=== PATIENT | female | born 1985 | race Caucasian/White ===

== ENCOUNTER 2016-11-04 23:42 | Emergency (ER) | payer MEDICAID ==
[~2016-11-04] VITALS: Ht 170.2 cm; Wt 57.0 kg
[2016-11-04 23:44] VITALS: BP 120/71; PULSE 80; RESP 16; TEMP 98.1; O2SAT 95
[2016-11-05] MEDS ORDERED: ALBU6.7H INH (00:10)
[2016-11-05] MEDS ORDERED: ZITH250T PO (00:10)
--- NOTE | 2016-11-05 00:13 | PD ---
HPI Chief Complaint: Cold / Flu Symptoms Time Seen by Provider: 00:11 Travel History International Travel<30 days: No Contact w/Intl Traveler<30days: No Traveled to known affect area: No History of Present Illness HPI 30-year-old white female presents to emergency department with a three-day history of cough, congestion, sore throat, runny nose and general malaise. She denies any fever or chills. No nausea vomiting. No abdominal pain or diarrhea. No dysuria frequency. Symptoms are moderate. PFSH Past Medical History Narrative Medical Muscular dystrophy Immunizations Current: Yes Tetanus Vaccination: Unknown Influenza Vaccination: No ?: Not LMP: 10/26/16 Past Surgical History Narrative Surgical Ankle surgery Social History Alcohol Use: No Tobacco Use: Yes Substance Use: No Allergies-Medications (Allergen,Severity, Reaction): Coded Allergies: No Known Allergies (Unverified , 11/05/16) Reported Meds & Prescriptions Reported Meds & Active Scripts Active Proventil Hfa 6.7 GM Inh (Albuterol Sulfate) 90 Mcg/Act Aer 2 Puff INH Q4-6H PRN Zithromax (Azithromycin) 250 Mg Tab 250 Mg PO DIRECTED Take 2 tabs (500 mg) on day 1 then 1 tab daily x 4 days. Review of Systems Except as stated in HPI: all other systems reviewed are Neg Physical Exam Narrative GENERAL: Well-developed, well-nourished in no acute distress. Nontoxic appearing. HEAD: Normocephalic, atraumatic. EYES: Pupils equal round and reactive. Extraocular motions intact. No scleral icterus. No injection or drainage. ENT: TMs clear without erythema. The external auditory canals clear. Nose: clear . Posterior pharynx is erythematous and moist. No tonsillar edema or exudate. Uvula midline. Airway patent. NECK: Trachea midline.Supple, nontender, moves head freely. No central bony tenderness or spasm. CARDIOVASCULAR: Regular rate and rhythm without murmurs, gallops, or rubs. RESPIRATORY: Few rhonchi with occasional fine x-ray wheeze. GASTROINTESTINAL: Abdomen soft, non-tender, nondistended. No hepato-splenomegaly , or palpable masses. No guarding. EXTREMITIES: No clubbing, cyanosis, or edema. No joint tenderness, effusion, or edema noted. BACK: Nontender without deformity or crepitance. No flank tenderness. Data Data Last Documented VS Vital Signs Date Time Temp Pulse Resp B/P Pulse Ox O2 Delivery O2 Flow Rate FiO2 11/05/16 00:07 16 11/04/16 23:44 98.1 80 120/71 95 MDM Medical Decision Making Medical Screen Exam Complete: Yes Emergency Medical Condition: Yes Medical Record Reviewed: Yes Differential Diagnosis MDM: High Differential diagnoses: Pneumonia, bronchitis, URI, asthma, RAD, legionnaire's disease, SARS, ARDS, influenza, bronchiolitis, RSV,PE,CHF Narrative Course This is bronchitis. Patient is given Zithromax 500 mg by mouth. Diagnosis Primary Impression: Bronchitis Patient Instructions: General Instructions Additional Instructions: Rest. Increase fluids. Tylenol and Advil. Robitussin-DM. Zithromax, and albuterol. Followup with your Dr. in one week. Return to the ER for any problems. Med/Other Pt SpecificInfo: Prescription(s) given Scripts Albuterol 6.7 GM Inh (Proventil Hfa 6.7 GM Inh)90 Mcg/Act Aer2 Puff INH Q4-6H PRN (SHORTNESS OF BREATH) #1 INHALER Prov:Belgica Stafford MD 11/05/16 Azithromycin (Zithromax)250 Mg Ewi030 Mg PO DIRECTED #6 TAB Take 2 tabs (500 mg) on day 1 then 1 tab daily x 4 days. Prov:Belgica Stafford MD 11/05/16 Disposition: 01 DISCHARGE HOME Condition: Stable Alejandro Diaz Nov 05, 2016 00:13
[2016-11-05] MEDS ORDERED: AZITHROMYCIN 250 MG TAB PO ONE (00:15)
== END 2016-11-05 00:55 | disposition home or self-care (01) ==
LOC: NEPB 23:42
DX: J40 Bronchitis, not specified as acute or chronic (principal)
CPT/HCPCS: 99283